=== PATIENT | male | born 1955 | race Caucasian/White ===

== ENCOUNTER → 2021-11-23 08:15 | Outpatient (CLI) | payer OTHER, SELFPAY ==
--- NOTE | 2021-11-23 | DI.MRI.S_ITS ---
PROCEDURE: MR SHOULDER RT WO CON INDICATIONS: RIGHT ROTATOR CUFF TEAR TECHNIQUE: Noncontrast oblique coronal T2 fast spin echo with fat saturation, oblique sagittal T1 spin echo and T2 fast spin echo with fat saturation, axial T1 spin echo and T2 fast spin echo with fat saturation through the shoulder. COMPARISON: [facility] Outside Film, MR, MR SHOULDER RIGHT WITHOUT CONTRAST, 11/18/2019, 10:17. [facility] Outside Film, CR, XR SHOULDER 2+ VIEWS RIGHT, 11/01/2021, 10:09. FINDINGS: Image quality: Excellent. Rotator cuff: There is mild to moderate supraspinatus and infraspinatus tendinosis. Teres minor tendon is intact. There is mild to moderate subscapularis tendinosis. No significant rotator cuff tendon tear is seen. The rotator cuff musculature is normal in bulk. Bones and bursae: No acute trabecular bone injury or fraction. Chronic traction cystic changes are seen at the posterosuperior humeral head and greater tuberosity near the rotator cuff tendon insertions. Mild partial-thickness cartilage thinning in the medial humeral head and central glenoid. Moderate degenerative changes are seen in the acromioclavicular joint with marginal osteophyte formation and subchondral cystic changes. Small ossification again seen along the posterior aspect of the distal clavicle. There is trace subacromial/subdeltoid bursal fluid. No significant glenohumeral effusion is seen. Capsule and soft tissues: There is chronic tearing of the superior to posterosuperior labrum, which does not appear significantly changed when compared to the prior exam from 11/18/2019. The proximal biceps long head tendon demonstrates mild tendinosis. There is partial effacement of the normal fat signal in the rotator interval. The anterior band of the inferior glenohumeral ligament in the middle glenohumeral ligament appear mildly thickened. IMPRESSION: 1. Mild to moderate rotator cuff tendinosis involving the supraspinatus, infraspinatus, and subscapularis tendons. No significant rotator cuff tendon tear. 2. Mild tendinosis of the proximal biceps long head tendon. 3. Chronic nondisplaced tearing of the superior to posterosuperior labrum. 4. Moderate acromioclavicular joint osteoarthrosis. 5. Partial effacement of the rotator interval fat and mild thickening of the middle and inferior glenohumeral ligaments are nonspecific, but can be seen in the setting of the clinical syndrome of adhesive capsulitis. Dictated by: Lorenzo Baig M.D. on 11/23/2021 at 11:14 Approved by: Lorenzo Baig M.D. on 11/23/2021 at 11:21
== END ==
PROVIDERS: Family Provider Family Medicine; PCP Family Medicine; Referring Provider Orthopaedic Surgery; Visit Provider Orthopaedic Surgery
DX: M75.111 Incomplete rotator cuff tear or rupture of right shoulder, not specified as traumatic (principal); S43.431A Superior glenoid labrum lesion of right shoulder, initial encounter; M19.011 Primary osteoarthritis, right shoulder
CPT/HCPCS: 73221

== ENCOUNTER 2022-08-14 14:20 | Day surgery (SDC) | payer OTHER, SELFPAY ==
--- NOTE | 2022-08-14 | PATH_ITS ---
[facility] Accession Number: [id number] No. of containers..01 Tissue . 01 Material submitted: . colon - SIGMOID . 01 Diagnosis: Sigmoid Colon, Polypectomy: Hyperplastic polyp. V 08/21/2022 1312 Local . 01 Electronically signed: . Gema Perales MD, Pathologist NPI- [id number] . 01 Gross description: . SIGMOID: Received in formalin are 2 fragment(s) of james, soft tissue measuring 0.2 x 0.1 x 0.1 cm to 0.1 x 0.1 x 0.1 cm submitted entirely in 1 cassette(s) /[facility] 08/17/2022 1518 Local . 01 Pathologist provided ICD-10: K63.5 . 01 CPT . 982907 Specimen Comment: A courtesy copy of this report has been sent to [phone] Performed at: 01 [facility] [address] [place] [address], [place], [place] [id number] MD Ron Hidalgo MD Phone: [phone]
[2022-08-14 14:54] VITALS: BMI 30.5
[2022-08-14 15:11] VITALS: BP 134/77; PULSE 96; RESP 16; TEMP 36.6; O2SAT 96
[2022-08-14] MEDS: LACTATED RINGERS 1,000 ML 200 ML IV (15:12)
--- NOTE | 2022-08-14 15:41 | PM.HP.1 ---
History of Present Illness History of Present Illness Date Patient Seen: 08/14/22 Time Patient Seen: 15:41 Chief complaint: SDC Narrative: 66-year-old man history polyps and family history of colon cancer here for screening colonoscopy. Last colonoscopy 1-1/2 years ago 11 polyps. Mother had colon cancer. No abdominal complaints. PFSH Social History household members: significant other Smoking Status: Never smoker alcohol intake: current Meds Home Medications and Allergies Home Medications Medication Instructions Recorded Confirmed Type allopurinol 300 mg PO DAILY 08/14/22 08/14/22 History atorvastatin 5 mg PO DAILY 08/14/22 08/14/22 History lisinopril 20 mg PO DAILY 08/14/22 08/14/22 History omeprazole 20 mg capsule,delayed 20 mg PO DAILY 08/14/22 08/14/22 History release Allergies Allergy/AdvReac Type Severity Reaction Status Date / Time simvastatin Allergy Mild Nausea Verified 08/14/22 14:48 Exam Vital Signs (past 8 hours): - 08/14/22 15:11 Temperature 97.8 F Pulse Rate 96 H Respiratory Rate 16 Blood Pressure 134/77 Pulse Oximetry 96 Oxygen Delivery Method Room Air Oxygen Delivery Method Room Air Narrative Exam Narrative: General adult man alert oriented no acute distress Extremities warm well perfused Assessment & Plan Assessment and plan (1) Personal history of colonic polyps: Status: Acute Assessment & Plan narrative: The patient requires colorectal screening and colonoscopy is recommended. Technical details were discussed. Risks, benefits, alternatives explained. Risks including but not limited to myocardial infarction, aspiration, bleeding, pain, missed lesion, incomplete examination, need for further radiographic studies, colonic perforation, and need for major abdominal surgery were discussed. All questions were answered to their satisfaction, and they are in agreement with this plan.
--- NOTE | 2022-08-14 16:28 | PM.OP.COLON ---
Operative Date/Time/Diagnoses Date of procedure: 08/14/22 Time of procedure: 16:28 Pre-op diagnosis: Personal history of colonic polyps Post-op diagnosis: same Procedure & Clinicians Study performed: Colonoscopy and polypectomy Same procedure as scheduled: Yes Indications: Family history of colon cancer Personal history of colonic polyps Procedure Notes Procedure in detail: The history and physical was performed/updated and the patient is ASA class is 2. The procedure was discussed in detail with the patient. Potential risks complications including infection, bleeding, missed diagnosis, perforation, need for surgery, and were explained. Their questions were answered and informed consent was obtained. Patient was brought to the procedure room and placed standard monitoring equipment. The patient's vital signs were monitored continuously throughout the entire procedure. Prior to starting time-out was performed. The patient was placed in the left lateral recumbent position. Procedural sedation was administered by anesthesia. Examination began with a thorough inspection of the perianal area there was no evidence of fissures, fistulae, external hemorrhoids or cutaneous malignancy. The colonoscopy scope was then placed into the anal canal and was advanced to the cecum, which was identified by the ileocecal valve, the appendiceal orifice and the confluence of the taenia. The scope was then slowly withdrawn examining colon thoroughly in all directions, irrigating it of any residual stool. Within the sigmoid colon there were 2 approximally 5 mm polyps which were removed with biopsy forceps. No other polyps were identified. The patient tolerated the procedure well. They will be discharged once criteria are met. The prep was of fair quality. The withdrawl time was 10 minutes. Specimen(s): other (Sigmoid colon polyps) Impression: Colonic polyps x2 Post-procedure Recommendations: High fiber diet Plan for aftercare: Follow-up is dependent on pathology findings Disposition: same day surgery
[2022-08-14 16:30] VITALS: BP 100/51; PULSE 85; RESP 17; TEMP 36.8; O2SAT 93
[2022-08-14 16:34] VITALS: BP 97/50; PULSE 89; RESP 10; O2SAT 92
[2022-08-14 16:39] VITALS: BP 88/51; PULSE 82; RESP 15; TEMP 36.1; O2SAT 94
[2022-08-14 16:41] VITALS: BP 91/53
[2022-08-14 17:11] VITALS: BP 128/63; PULSE 82; RESP 16; TEMP 36.6; O2SAT 97
== END 2022-08-14 17:21 | disposition home or self-care (01) ==
PROVIDERS: Family Provider Family Medicine; PCP Physician Assistant; Referring Provider Surgery; Visit Provider Surgery
PROC: 0DJD8ZZ Inspection of Lower Intestinal Tract, Via Natural or Artificial Opening Endoscopic (ICD-10-PCS; CPT 45378; principal; 2022-08-14 15:15)
DX: Z12.11 Encounter for screening for malignant neoplasm of colon (principal); Z86.010 Personal history of colon polyps; K63.5 Polyp of colon
CPT/HCPCS: 45380